=== PATIENT | male | born 1955 | race African-American/Black ===

== ENCOUNTER 2016-08-29 01:08 | Emergency (ER) | payer OTHER ==
[~2016-08-29] VITALS: Ht 180.3 cm; Wt 104.5 kg
[~2016-08-29 01:08] MED LIST: DIL100 PO; PHEN30TA37 PO; [UNRECOGNIZED DRUG - CODE] PO
[2016-08-29 01:11] VITALS: BP 133/90; PULSE 72; RESP 13; O2SAT 97
[2016-08-29] MEDS ORDERED: PHEN15TA15 (01:16)
[2016-08-29] MEDS ORDERED: PHN100C PO (01:19)
[2016-08-29] MEDS ORDERED: PHEN15TA15 PO (01:19)
--- NOTE | 2016-08-29 01:27 | ED.REPORT ---
HPI-Seizure Date of Service Aug 29, 2016 ED Provider: Goemz Blackburn DO A 61 year old male with a history of brain tumor with resection and seizures is brought to the ED via EMS due to seizures. Paramedics were called to the pt's house twice tonight for seizures. The pt has been taking phenobarbital and Dilantin since 1988 to control his seizures but has not been taking them regularly for the past week. The pt admits to a mild headache and biting his tongue, but denies incontinence or fever. Nursing Notes Stated Complaint: SEIZURE Chief Complaint: Seizure Nursing Notes Reviewed: Yes Allergies: Coded Allergies: Penicillins (Verified Allergy, Severe, 03/02/13) THROAT SWELLING Scheduled Phenobarbital (Phenobarbital) 15 Mg Tablet 60 MG PO BID Phenytoin Sodium ER (Dilantin) 100 Mg Capsule 300 MG PO HS General Time Seen by Provider: 01:27 Chief Complaint Chief Complaint: Other (Seizure) Hx Obtained From: Patient, Spouse, EMS Arrived By: Ambulance Onset Occurred: 1 - 4 hours ago Recent Healthcare: No recent hospitalization, Recent doctor visit Similar Sx Previous: Yes Past Medical History Past Medical History seizures brain tumor (resected) Past Surgical History brain tumor removal 1988 Smoking History Unknown if Ever Smoker Social History Other Social History: Good social support Ambulatory Status Independent Review of Systems Review of Systems Note: denies incontinence Constitutional: Denies: Fever Cardiovascular: Denies: Chest pain Musculoskeletal: Denies: Back pain Skin: Denies Rash Neurologic: Reports: Headache, Seizure Complete sys rev & neg: except as marked. Physical Exam Initial Vital Signs Vital Signs (First) Date Time Temp Pulse Resp B/P Pulse Ox O2 Delivery O2 Flow Rate FiO2 08/29/16 01:11 36.6 72 13 133/90 97 Room Air Initial VS: Reviewed General/Constitutional: Awake, Alert Neck: Atraumatic, Supple, Full range of motion Respiratory / Chest: Atraumatic, Breath sounds NL, Breath sounds = bilat, No respiratory distress Cardiovascular: Heart rate NL, Regular rhythm, Heart sounds NL Neurologic: Oriented X3, Speech NL, No motor deficits, No sensory deficits Head / Eyes: Atraumatic, Normocephalic, PERRL, EOMI ENT: Airway patent, Mucous membranes moist tongue bite Abdomen: Atraumatic, Soft, Non-tender Upper Extremity / MS: Atraumatic, Full range of motion Lower Extremity / Pelvis / MS: Atraumatic, Full range of motion Skin: Color NL, No rash, Warm, Dry Psychiatric: Affect NL, Mood NL Back: Atraumatic, Full range of motion Interpretation & Diagnostics Lab Results Interpretation Result Diagram: 08/29/16 0125 08/29/16 0125 Test 08/29/16 01:25 White Blood Count 7.6th/mm3 (3.8-10.1) Red Blood Count 3.99mil/mm3 (4.40-5.80) Hemoglobin 12.9g/dL (13.8-17.2) Hematocrit 37.5% (41.0-50.0) Mean Corpuscular Volume 94.0fL (81-100) Mean Corpuscular Hemoglobin 32.3pg (27.0-35.0) Mean Corpuscular Hemoglobin Concent 34.4% (32.0-37.0) Red Cell Distribution Width 13.1% (12.3-15.4) Platelet Count 246bil/L (150-400) Neutrophils (%) (Auto) 63.3% (40-74) Lymphocytes (%) (Auto) 23.9% (14-46) Monocytes (%) (Auto) 10.3% (4-12) Eosinophils (%) (Auto) 1.7% (0-5) Basophils (%) (Auto) 0.7% (0-3) Sodium Level 137mEq/L (134-144) Potassium Level 4.6mEq/L (3.5-5.2) Chloride Level 100mEq/L (97-108) Carbon Dioxide Level 20mmol/L (18-29) Blood Urea Nitrogen 23mg/dL (6-24) Creatinine 1.21mg/dL (0.76-1.27) Estimat Glomerular Filtration Rate 65mL/min (>59) Glucose Level 108mg/dL (60-99) Calcium Level 8.4mg/dL (8.5-10.1) Total Bilirubin 0.2mg/dL (0.0-1.2) Aspartate Amino Transf (AST/SGOT) 25U/L (0-50) Alanine Aminotransferase (ALT/SGPT) 28U/L (0-44) Alkaline Phosphatase 90U/L (25-160) Total Protein 6.8g/dL (6.4-8.4) Albumin 4.0g/dL (3.4-5.0) Phenytoin (Dilantin) Level 14.3uG/mL (10.0-20.0) Phenobarbital Level 11.5ug/mL (15.0-40.0) Pulse Oximetry Interpretation Pulse Oximetry Interpretation: 97% on room air Pulse Oximetry: Pulse Ox normal Re-Eval/Medical Decision Med Decision/Clinical Course 61-year-old male with a history of epilepsy presents after having a generalized tonic-clonic seizure. He bit his tongue. He admitted to not taking his Dilantin or phenobarbital for the past 3-5 days. He was mildly postictal many came around was fully conversant. He was loaded with fosphenytoin. His Dilantin level however was 14. His phenobarbital level was very low though. He seemed to tolerate the additional Dilantin load well. He was never ataxic. He was never bradycardic or hypotensive. He was given his oral phenobarbital however that made him rather sleepy. I think that it is important that he stays on his antiepileptics and discusses this with his primary care. His heart is exactly where his level should be due to the fact he is on [address] he looks great. He is certainly not subtherapeutic now. He is showing no signs of Dilantin toxicity. A single 1 g load should not be an issue even with his level of 14. He was observed for several hours. No cardiac dysrhythmias. He will be discharged home with close outpatient follow-up. He will start his Dilantin again on Tuesday. Source of Hx: Old records Re-Evaluation/Progress : Time of Eval: 02:18 Patient Status: Condition improved Re-Evaluation/Progress Note: Pt rechecked, who is comfortable. Lab results are discussed and CT scan is discussed and recommended. The pt declines CT at this time. The plan for discharge following further observation is discussed. The pt understands and agrees with the plan. All questions are addressed at this time. Counseled Regarding: Diagnosis, Lab results, Need for follow-up, When/why to return to ED Discharge & Departure Impression: Primary Impression: Seizure Disposition: Home Discharge Condition All VS Reviewed: Yes Condition: Stable Patient Instructions: Epilepsy (ED) Additional Instructions: Take your medications as prescribed. Do not drive and follow your seizure precautions. Your Dilantin level was 14.3 and your phenobarbital level was 11.5. Do not miss your doses of these medications. Call your primary care physician Tuesday morning to arrange a follow up appointment next week. Return to the emergency department if you develop any new or worsening symptoms. Referrals: Derrick Fink MD (PCP) Scribe Attestation Portions of this note were transcribed by Gurmeet Hernandez. I, Dr. Blackburn personally performed the history, physical exam and medical decision-making; I reviewed and confirmed the accuracy of the information in the transcribed note. Signed by: Crissy Cabrera, 08/29/16 and 0227. copies to: Derrick Fink MD, Todd P DO Aug 29, 2016 01:27 GURMEET HERNANDEZ Aug 29, 2016 02:12
[2016-08-29] MEDS ORDERED: FOSPHENYTOIN IV ONE (01:30)
[2016-08-29] MEDS ORDERED: MGPE IV ONE (01:30)
[2016-08-29] MEDS ORDERED: SODIUM CHLORIDE 0.9% IV ONE (01:30)
[2016-08-29 01:33] LABS: BASOPHILS % (AUTO) 0.7 % (0-3); EOSINOPHILS % (AUTO) 1.7 % (0-5); MONOCYTES % (AUTO) 10.3 % (4-12); Mean Corpuscular Hemoglobin 32.3 pg (27.0-35.0); NEUTROPHILS % (AUTO) 63.3 % (40-74); Platelet Count 246 bil/L (150-400)
[2016-08-29] MEDS ORDERED: PHENobarbital 32.4 mg Tablet PO ONE (01:45)
[2016-08-29 04:35] VITALS: BP 122/72; PULSE 55; RESP 18; O2SAT 97
[2016-08-29] MEDS ORDERED: Sodium Chloride LOK Flush 10 mL Syringe IVFLUSH SCH (08:30)
== END 2016-08-29 04:30 | disposition home or self-care (01) ==
LOC: EDBD 01:08 → SED 01:08
DX: R56.9 Unspecified convulsions (principal); Z91.14 Patient's other noncompliance with medication regimen; Z86.011 Personal history of benign neoplasm of the brain; Z98.890 Other specified postprocedural states; Z88.0 Allergy status to penicillin
CPT/HCPCS: 36415; 80053; 80184; 80185; 85025; 96374; 96375; 99284; J1200; Q2009